=== PATIENT | female | born 1960 | race Caucasian/White ===

== ENCOUNTER → 2016-08-13 | Outpatient (CLI) | payer OTHER ==
[~2016-08-13] MED LIST: LOSARTAN POTASS50 MG PO; MELOXICAM15 MG PO; MULTI VITAMIN1 EACH PO; OMEPRAZOLE20 M1 PO
--- NOTE | ~2016-08-13 | CR97 ---
[facility] A Service of [facility] & [facility] RADIOLOGY TEXT RESULTS PATIENT: MATTI ORTEGA V LOCATION: [facility] : 60 UNIT #: [id number] AGE: [address]: Christiano Sanchez III, MD SEX: F ORDER DR: [id number] [address] [place], [place] [address] [id number] O MR#: [id number] Acc #: [id number] NAME: MATTI ORTEGA V. : 1960 SEX: F STUDY DATE/TIME: 08/13/2016 12:47 UNIT: [facility] ROOM: STUDY DESCRIPTION: CR Esophagram Attending Physician: Christiano Sanchez III, M.D. Referring Physician: Christiano Sanchez III, M.D. Ordering Physician: Christiano Sanchez III, M.D. Primary Care Physician: Ravin Helms M.D. MEDICAL IMAGING REPORT This report is preliminary unless electronic signature is present EXAM Esophagram, 08/13/2016. INDICATION 56-year-old female undergoing preoperative evaluation for planned laparoscopic gastric banding procedure and possible paraesophageal hernia repair. Cough symptoms. Symptoms began this morning. Hypertension. History of breast biopsy. TECHNIQUE Spot fluoroscopic views of the esophagus were obtained in various projections after the patient ingested gas crystals and thick and thin liquid barium on 08/13/2016. COMPARISON STUDIES No comparisons. FINDINGS Notes indicate 0.8 minutes of fluoroscopy time was used in the case. 73 images from the procedure were saved to the PACS system. The esophagus demonstrates an unremarkable primary stripping wave. No significant secondary or tertiary contractions are identified. Very minimal tertiary contractions are present in the distal third esophagus. There is no focal esophageal mass or mucosal abnormality. No persistent stricture. On the frontal views of the upper third esophagus, there is the suggestion on 1 or 2 images of a potential small esophageal ring. This could be further assessed with upper endoscopy as clinically desired or warranted, particularly if the patient is symptomatic. There is no hiatal hernia. IMPRESSION 1. Equivocal small esophageal ring at the level of the proximal third [facility] A Service of [facility] & [facility] RADIOLOGY TEXT RESULTS PATIENT: MATTI ORTEGA V [id number] 60 UNIT #: [id number] AGE: [address]: Christiano Sanchez III, MD SEX: F ORDER DR: esophagus at approximately C6-7. This does not appear to represent sequela of a prominent cricopharyngeal muscle. Upper endoscopy would be complimentary as described above. 2. Very minimal tertiary contractions in the distal third esophagus. 3. The examination is otherwise negative. 4. Notes indicate that approximately 0.8 minutes of fluoroscopy time was used in the case. 73 images were saved from the procedure to the DR PACS system. Dictated by... Darwin Carl M.D. THIS IS AN ELECTRONICALLY VERIFIED REPORT Darwin Carl M.D. at 08/13/2016 5:06 PM PATRICIA/melvin TD: 08/13/2016 16:16 JOB #: [id number] MEDICAL IMAGING REPORT COPY
--- NOTE | ~2016-08-13 | CR63 ---
[facility] A Service of [facility] & [facility] RADIOLOGY TEXT RESULTS PATIENT: MATTI ORTEGA V LOCATION: [facility] : 60 UNIT #: [id number] AGE: [address]: Christiano Sanchez III, MD SEX: F ORDER DR: [id number] [facility] [address] [place], [place] [address] [id number] O MR#: [id number] Acc #: [id number] NAME: MATTI ORTEGA V. : 1960 SEX: F STUDY DATE/TIME: 08/13/2016 8:05 UNIT: [facility] ROOM: STUDY DESCRIPTION: CR Chest 2 View Attending Physician: Christiano Sanchez III, M.D. Referring Physician: Christiano Sanchez III, M.D. Ordering Physician: Christiano Sanchez III, M.D. Primary Care Physician: Ravin Helms M.D. MEDICAL IMAGING REPORT This report is preliminary unless electronic signature is present EXAM Chest - PA and lateral, 08/13/2016 HISTORY Morbid obesity. Preop laparoscopic gastric banding. Cough this morning. Benign essential hypertension. FINDINGS PA and lateral examination of the chest upright shows a good expansion of the parenchyma with a normal distribution of the pulmonary vascularity. There is no indication of congestion, effusion, infiltrate, tumor, or nodular density. The pleural reflections and diaphragmatic contours are normal. The cardiac silhouette and mediastinal anatomy is within normal limits. IMPRESSION Normal chest. Dictated by... Zan Alicia M.D. THIS IS AN ELECTRONICALLY VERIFIED REPORT Zan Alicia M.D. at 08/13/2016 4:58 PM MARLA/cailin TD: 08/13/2016 11:14 JOB #: [id number] MEDICAL IMAGING REPORT COPY
--- NOTE | ~2016-08-13 | EKG ---
PATIENT: MATTI ORTEGA UNIT #: [id number] Ventricular Rate: 78 BPM Atrial Rate: 78 BPM P-R Interval: 130 ms QRS Duration: 88 ms Q-T Interval: 370 ms QTC Calculation(Bezet): 421 ms P Roland: 13 degrees Calculated R Roland: 24 degrees Calculated T Roland: 12 degrees Diagnosis Line: Normal sinus rhythm Diagnosis Line: Normal ECG Diagnosis Line: No previous ECGs available Diagnosis Line: Confirmed by COLLINS PATEL MD ([id number]) on 08/13/2016 Diagnosis Line: 4:46:22 PM INTERPRETING MD: JORGE EWING
[2016-08-13 09:51] LABS: HEMATOCRIT 44.7 % (35.0-45.0); HEMOGLOBIN 14.7 gm/dL (12.0-16.0); MEAN CELL VOLUME 89.9 FL (83-96); MEAN CORPUSCULAR HEMOGLOBIN 29.6 PG (28-34); MEAN CORPUSCULAR HGB CONC 32.9 g/dL (30-36); MEAN PLATELET VOLUME 11.2 FL (6.5-11.5); RED BLOOD COUNT 4.97 X10e (3.90-5.30); RED CELL DISTRIBUTION WIDTH 12.8 % (11.0-15.5); WHITE BLOOD COUNT 7.6 X10e3 (4.0-10.5)
[2016-08-13 10:55] LABS: ALBUMIN SERUM 4.3 g/dL (3.5-5.0); ALKALINE PHOSPHATASE 79 U/L (32-92); ALT (SGPT) 36 U/L (10-40); AST (SGOT) 24 U/L (10-42); BILIRUBIN,TOTAL 0.7 mg/dL (0.2-2.0); BLOOD UREA NITROGEN 21 mg/dL (9-23); CALCIUM SERUM 9.3 mg/dL (8.4-10.2); CARBON DIOXIDE 29 mmol/L (22-31); CHLORIDE 101 mmol/L (100-111); GLOM FILT RATE Estimated ABOVE60 mL/min (>60); GLUCOSE FASTING 94 mg/dL (70-110); POTASSIUM 4.1 mmol/L (3.5-5.1); PROTEIN TOTAL SERUM 6.9 g/dL (6.0-8.3); SODIUM 140 mmol/L (135-145)
[2016-08-13 12:11] LABS: CHOLESTEROL 165 mg/dL (0-200); HDL CHOLESTEROL 53 mg/dL (35-95); LDL CHOLESTEROL 85 mg/dL (-130); LDL/HDL RATIO 2 RATIO (0-4); TRIGLYCERIDES 136 mg/dL (10-160)
== END | disposition home or self-care (01) ==
LOC: CRAD 07:40
PROVIDERS: Surgery
DX: Z01.818 Encounter for other preprocedural examination (principal)
CPT/HCPCS: 36415; 71020; 74220; 80053; 80061; 84443; 85027; 93005

== ENCOUNTER → 2016-08-25 | Day surgery (SDC) | payer OTHER ==
--- NOTE | ~2016-08-25 | OR ---
Unit #: [id number] #: [id number] Patient: MATTI ORTEGA V [id number] [facility] [address]. [place], [place] [address] [id number] O MR#: [id number] NAME: MATTI ORTEGA V. ROOM: Date of Procedure: 08/25/2016 Admission Date: 08/25/2016 Surgeon: Christiano Sanchez III, M.D. : 1960 Attending Physician: Christiano Sanchez III, M.D. Referring Physician: Christiano Sanchez III, M.D. Primary Care Physician: Ravin Helms M.D. OPERATIVE REPORT PREOPERATIVE DIAGNOSIS Chronic severe obesity. POSTOPERATIVE DIAGNOSIS Chronic severe obesity. PROCEDURE PERFORMED Laparoscopic adjustable gastric banding (AP standard with low-profile port) and laparoscopic paraesophageal hernia repair. HYDRAMATIC SPECIALIST Dr. Grayson Nagel. SPECIMENS None. COMPLICATIONS None apparent. ESTIMATED BLOOD LOSS Minimal. ANESTHESIA General endotracheal tube anesthesia. INDICATIONS FOR PROCEDURE This is a 56-year-old lady, who has chronic severe obesity with a BMI of 30 and associated comorbidities of sleep apnea and hypertension. She has been through the bariatric program at [facility] and understands the risks and benefits of the procedure. DESCRIPTION OF PROCEDURE After consent was obtained, including the risks and benefits of slippage, erosion, port dysfunction, and possible failure of weight loss due to noncompliance, the patient was taken to the operating room and placed in the supine position. General anesthetic was administered and the abdomen was prepped and draped in standard surgical fashion. I began by making a 2 cm incision just above and to the left of the umbilicus. I used a Visiport to enter the peritoneal cavity without any difficulty. C02 pneumoperitoneum was then established. Next, I placed a 5 mm port in the right upper quadrant, a 5 mm Haja liver retractor in Unit #: [id number] #: [id number] Patient: MATTI ORTEGA V the subxiphoid region to provide exposure of the gastroesophageal junction. Next, a 10 mm port was placed in the left upper quadrant and a 5 mm port was placed in the left lateral subcostal region. I began by performing an examination of the GE junction to evaluate for a hiatal hernia. We then scored the peritoneal attachments overlying the angle of His. I then opened up the clear space in the gastrohepatic ligament, and then using 2 blunt graspers, I identified the small fat pad crossing over the right crura. I swept the fat anterior to the crura off the crura and using the pars flaccida, I created a retrogastric tunnel where the blunt grasper exited at the angle of His. Once I had made this tunnel safely, I then inserted an Allergan AP band into the abdominal cavity. This adjustable gastric band was then place around the upper part of the stomach and fastened and buckled anteriorly. We then tacked the lateral fundus over the band to the proximal pouch with 2 interrupted 0 Ethibond sutures. I then used a third stitch to imbricate the excess anterior stomach by going from the lesser curvature up towards where the last stitch was placed. We then had excellent hemostasis. I removed the Haja liver retractor. We then removed the port tubing through the initial port incision. The rest of the ports were removed, and the pneumoperitoneum was released. I then left a small tail on the tubing. We then attached the port to the excess band tubing. We placed a piece of Prolene mesh along the back side of the port and used a Prolene stitch to anchor this mesh in place. We then trimmed the excess mesh so that just a small footprint of mesh was in place behind the port. I then inserted the tubing back into the abdominal cavity, and we placed the port into a small pocket that was made just inferior to where our initial port incision was made. The mesh was in direct contact with the fascia, and this will scar in place to hold the port in place. We then injected all the port sites with 0.25% plain Marcaine, and I reapproximated the skin edges with interrupted 4-0 Vicryl subcuticular sutures. Steri-strips were then applied. The patient tolerated the procedure without any problems and returned to the recovery room in stable condition. After exposure of the GE junction, the patient was noted to have a small to medium size anterior paraesophageal hernia. I scored the phrenoesophageal ligament, reduced the hernia defect and after identifying both the right and left crura, I reapproximated the defect with an interrupted 0 Ethibond [id number] suture x2. We then proceeded with the case as listed above, Dictated by... Christiano Sanchez III, M.D. VCL/yuly TD: 08/27/2016 01:54 JOB #: [id number] Unit #: [id number] #: [id number] Patient: MATTI ORTEGA V OPERATIVE REPORT X Christiano Sanchez III, MD PROCEDURE OPERATIVE NOTE
--- NOTE | ~2016-08-25 | CR7 ---
[facility] A Service of [facility] & [facility] RADIOLOGY TEXT RESULTS PATIENT: MATTI ORTEGA V LOCATION: [facility] : 60 UNIT #: [id number] AGE: [address]: Christiano Sanchez III, MD SEX: F ORDER DR: [id number] [facility] [address] [place], [place] [address] [id number] O MR#: [id number] Acc #: [id number] NAME: MATTI ORTEGA V. : 1960 SEX: F STUDY DATE/TIME: 08/25/2016 UNIT: [facility] ROOM: STUDY DESCRIPTION: CR Abdomen Single AP View Attending Physician: Christiano Sanchez III, M.D. Referring Physician: Christiano Sanchez III, M.D. Ordering Physician: Christiano Sanchez III, M.D. Primary Care Physician: Ravin Helms M.D. MEDICAL IMAGING REPORT This report is preliminary unless electronic signature is present EXAM Abdomen, single view, 08/25/2016, 0816 hours. HISTORY Morbid obesity, postop Lap-Band placement today. COMPARISON STUDIES Esophagram, 08/13/2016. FINDINGS A single semierect portable view is performed. It excludes the lower abdomen and pelvis. There is a Lap-Band present overlying the left T10 and T11 craniovertebral junctions oriented at 62 degrees from vertical. Radiopaque tubing courses superiorly, leftward, and then inferiorly with port not included in the field of view. Bowel gas pattern unremarkable. IMPRESSION Postop Lap-Band placement overlying the left T10 and T11 craniovertebral junctions oriented at 62 degrees from vertical. Radiopaque tubing courses inferiorly and leftward with the port not included in the field of view of this exam. Dictated by... Tigist Benítez M.D. THIS IS AN ELECTRONICALLY VERIFIED REPORT Tigist Benítez M.D. at 08/25/2016 2:31 PM CLARICE/fallon TD: 08/25/2016 14:11 JOB #: [id number] [facility] A Service of [facility] & [facility] RADIOLOGY TEXT RESULTS PATIENT: MATTI ORTEGA V LOCATION: [facility] #: [id number] : 60 UNIT #: [id number] AGE: [address]: Christiano Sanchez III, MD SEX: F ORDER DR: MEDICAL IMAGING REPORT COPY
== END | disposition home or self-care (01) ==
LOC: CSUR 05:32
DX: E66.01 Morbid (severe) obesity due to excess calories (principal); K44.9 Diaphragmatic hernia without obstruction or gangrene; K21.9 Gastro-esophageal reflux disease without esophagitis; M19.90 Unspecified osteoarthritis, unspecified site; I10 Essential (primary) hypertension; G47.33 Obstructive sleep apnea (adult) (pediatric); F41.9 Anxiety disorder, unspecified; Z90.89 Acquired absence of other organs; Z98.890 Other specified postprocedural states; Z90.49 Acquired absence of other specified parts of digestive tract; Z88.5 Allergy status to narcotic agent; Z68.37 Body mass index [BMI] 37.0-37.9, adult; Z79.899 Other long term (current) drug therapy; Z87.891 Personal history of nicotine dependence; Z98.51 Tubal ligation status; Z82.61 Family history of arthritis; Z82.3 Family history of stroke; Z83.49 Family history of other endocrine, nutritional and metabolic diseases; Z82.49 Family history of ischemic heart disease and other diseases of the circulatory system; Z83.3 Family history of diabetes mellitus; Z81.1 Family history of alcohol abuse and dependence; Z81.8 Family history of other mental and behavioral disorders; Z84.89 Family history of other specified conditions
CPT/HCPCS: 74000; C1781; J0330; J0690; J1650; J1885; J2250; J2405; J3010